=== PATIENT | male | born 1995 | race Asian ===

== ENCOUNTER 2018-05-30 15:15 | Emergency (ER) | payer SELFPAY | END 2018-05-30 19:23 | disposition home or self-care (01) | LOC: ERS 15:15 | DX: S29.012A Strain of muscle and tendon of back wall of thorax, initial encounter (principal); F41.9 Anxiety disorder, unspecified; Z79.899 Other long term (current) drug therapy; X50.0XXA Overexertion from strenuous movement or load, initial encounter | CPT/HCPCS: 99283 ==